=== PATIENT | male | born 1980 | race Caucasian/White ===

== ENCOUNTER 2018-05-30 14:39 | Emergency (ER) | payer SELFPAY ==
--- NOTE | 2018-05-30 15:30 | EDPHYS ---
Physician Documentation [facility] Name: Edin Greco Jr Age: 37 yrs Sex: Male : 1980 Arrival Date: 05/30/2018 Time: 14:41 Bed 28 Private MD: None, None ED Physician Praveen Mead HPI: 05/30 15:25 This 37 yrs old Male presents to ER via Ambulatory with complaints of Abscess.cp 15:25 The patient presents with cellulitis of the right arm, left arm, right leg and left leg.cp 15:25 Onset: The symptoms/episode began/occurred 2 week(s) ago. Possible cause(s): unknown. cp Associated signs and symptoms: Pertinent positives: discharge, erythema, Pertinent negatives: fever. Historical: - Allergies: 14:57 No Known Allergies; aj1 - Home Meds: 14:57 None [Active]; aj1 - PMHx: 14:57 None; aj1 - PSHx: 14:57 ORIF left leg; aj1 - Immunization history:: Flu vaccine is not up to date. - Social history:: Smoking status: Patient uses tobacco products, smokes one pack cigarettes per day. - Ebola Screening: : Patient denies travel to an Ebola-affected area in the 21 days before illness onset. ROS: 15:25 Constitutional: Negative for body aches, chills, fever, poor PO intake. cp 15:25 Respiratory: Negative for cough, shortness of breath, wheezing. 15:25 Abdomen/GI: Negative for abdominal pain, vomiting, diarrhea, constipation. 15:25 Skin: Positive for rash, of the right arm, left arm, right leg and left leg. 15:25 All other systems are negative. Exam: 15:26 Head/Face: Normocephalic, atraumatic. cp 15:26 Constitutional: The patient appears in no acute distress, alert, awake, non-toxic, well developed, well nourished. 15:26 Eyes: Periorbital structures: appear normal, Conjunctiva: normal, no exudate, no injection, Lids and lashes: appear normal, bilaterally. 15:26 ENT: External ear(s): are unremarkable, Nose: is normal, Mouth: is normal, Posterior pharynx: is normal, airway is patent. 15:26 Chest/axilla: Inspection: normal. 15:26 Cardiovascular: Rate: tachycardic. 15:26 Respiratory: the patient does not display signs of respiratory distress, Respirations: normal, no use of accessory muscles, no retractions, no splinting, no tachypnea. 15:26 Skin: rash can be described as erythematous, pustular, on the right arm, left arm, right leg and left leg. Vital Signs: 14:57 BP 137 / 93; Pulse 93; Resp 18; Temp 97.8; Pulse Ox 98% on R/A; Weight 77.11 kg (R); aj1 Height 5 ft. 10 in. (177.80 cm) (R); Pain 0/10; 15:13 BP 138 / 94; Pulse 111; Pulse Ox 98% on R/A; rv 14:57 Body Mass Index 24.39 (77.11 kg, 177.80 cm) aj1 MDM: 15:15 Patient medically screened. cp 15:25 Differential diagnosis: abscess, allergic reaction, cellulitis, insect bite. cp 15:29 Data reviewed: vital signs, nurses notes, and as a result, I will discharge patient. cp 15:29 Counseling: I had a detailed discussion with the patient and/or guardian regarding: the cp historical points, exam findings, and any diagnostic results supporting the discharge/admit diagnosis, to return to the emergency department if symptoms worsen or persist or if there are any questions or concerns that arise at home. Administered Medications: No medications were administered Disposition: 16:00 Chart complete. cp Disposition: 05/30/18 15:29 Discharged to Home. Impression: Local infection of the skin and subcutaneous tissue, unspecified. - Condition is Stable. - Discharge Instructions: Staphylococcal Infection. - Prescriptions for Bactroban 2 % Topical Ointment - Apply to affected area 1 application by TOPICAL route every 12 hours; 30 gram. Doxycycline Hyclate 100 mg Oral Tablet - take 1 tablet by ORAL route every 12 hours; 20 tablet. - Medication Reconciliation Form, Thank You Letter, Antibiotic Education, Prescription Opioid Use form. - Follow up: Emergency Department; When: As needed; Reason: Worsening of condition. - Problem is new. - Symptoms are unchanged. Addendum: 06/03/2018 07:43 Co-signature as Attending Physician, Praveen Mead MD I agree with the assessment and c [place] plan of care. Signatures: Radha Carroll RN RN aj1 Praveen Mead MD MD cha Page, Corey, PA PA cp Maximiliano Sims, RN RN rv Corrections: (The following items were deleted from the chart) 05/30 15:38 15:29 05/30/2018 15:29 Discharged to Home. Impression: Local infection of the skin and rv subcutaneous tissue, unspecified. Condition is Stable. Forms are Medication Reconciliation Form, Thank You Letter, Antibiotic Education, Prescription Opioid Use. Follow up: Emergency Department; When: As needed; Reason: Worsening of condition. Problem is new. Symptoms are unchanged. cp
--- NOTE | 2018-05-30 15:30 | ER ---
Nurse's Notes [facility] Name: Edin Greco Jr Age: 37 yrs Sex: Male : 1980 Arrival Date: 05/30/2018 Time: 14:41 Bed 28 Private MD: None, None Diagnosis: Local infection of the skin and subcutaneous tissue, unspecified Presentation: 05/30 14:54 Presenting complaint: Patient states: He has had an abscesses to both arms for the past aj1 2 weeks. Patient states he has noticed yellow drainage from wounds. Denies fever. Transition of care: patient was not received from another setting of care. Onset of symptoms was April 2018. Risk Assessment: Do you want to hurt yourself or someone else? Patient reports no desire to harm self or others. Initial Sepsis Screen: Does the patient meet any 2 criteria? HR > 90 bpm. No. Patient's initial sepsis screen is negative. Does the patient have a suspected source of infection? No. Patient's initial sepsis screen is negative. Care prior to arrival: None. 14:54 Method Of Arrival: Ambulatory aj1 14:54 Acuity: KENZIE 4 aj1 Triage Assessment: 14:57 General: Appears in no apparent distress. comfortable, Behavior is calm, cooperative, aj1 appropriate for age. Pain: Denies pain. Neuro: Level of Consciousness is awake, alert, obeys commands. Cardiovascular: Patient's skin is warm and dry. Respiratory: Airway is patent Respiratory effort is even, unlabored, Respiratory pattern is regular, symmetrical. Historical: - Allergies: 14:57 No Known Allergies; aj1 - Home Meds: 14:57 None [Active]; aj1 - PMHx: 14:57 None; aj1 - PSHx: 14:57 ORIF left leg; aj1 - Immunization history:: Flu vaccine is not up to date. - Social history:: Smoking status: Patient uses tobacco products, smokes one pack cigarettes per day. - Ebola Screening: : Patient denies travel to an Ebola-affected area in the 21 days before illness onset. Screenin:03 Abuse screen: Denies threats or abuse. Denies injuries from another. Nutritional rv screening: No deficits noted. Tuberculosis screening: No symptoms or risk factors identified. Fall Risk None identified. Assessment: 15:02 General: Appears in no apparent distress. comfortable, Behavior is calm, cooperative. rv Pain: Denies pain. Neuro: Level of Consciousness is awake, alert, obeys commands, Oriented to person, place, time, situation. Cardiovascular: Capillary refill < 3 seconds. Respiratory: Airway is patent. GI: No signs and/or symptoms were reported involving the gastrointestinal system. : No signs and/or symptoms were reported regarding the genitourinary system. EENT: No signs and/or symptoms were reported regarding the EENT system. Derm: Skin is intact. Vital Signs: 14:57 BP 137 / 93; Pulse 93; Resp 18; Temp 97.8; Pulse Ox 98% on R/A; Weight 77.11 kg (R); aj1 Height 5 ft. 10 in. (177.80 cm) (R); Pain 0/10; 15:13 BP 138 / 94; Pulse 111; Pulse Ox 98% on R/A; rv 14:57 Body Mass Index 24.39 (77.11 kg, 177.80 cm) aj1 ED Course: 14:41 Patient arrived in ED. mr 14:41 None, None is Private Physician. mr 14:57 Triage completed. aj1 14:57 Arm band placed on Patient placed in an exam room. aj1 15:03 Patient has correct armband on for positive identification. Bed in low position. Call rv light in reach. Side rails up X 1. Pulse ox on. NIBP on. 15:12 Praveen Cristina PA is PHCP. cp 15:12 Praveen Mead MD is Attending Physician. cp 15:38 No provider procedures requiring assistance completed. Patient did not have IV access rv during this emergency room visit. Administered Medications: No medications were administered Outcome: 15:29 Discharge ordered by . cp 15:38 Discharged to home ambulatory. rv 15:38 Condition: good 15:38 Discharge instructions given to patient, Instructed on discharge instructions, follow up and referral plans. medication usage, wound care, Prescriptions given X 2. 15:38 Patient left the ED. rv Signatures: Radha Carroll, SHAYNE RN aj1 Kareen Chapman mr Praveen Cristina PA PA cp Maximiliano Sims RN RN rv Corrections: (The following items were deleted from the chart) 14:59 14:54 Acuity: KENZIE 3 aj1 aj
== END 2018-05-30 15:38 | disposition home or self-care (01) ==
LOC: ER 14:39
DX: L08.9 Local infection of the skin and subcutaneous tissue, unspecified (principal); F17.210 Nicotine dependence, cigarettes, uncomplicated
CPT/HCPCS: 99283